=== PATIENT | female | born 1990 ===

== ENCOUNTER 2022-06-01 15:56 | Outpatient (CLI) | payer BC | END 2022-06-01 15:57 | disposition home or self-care (01) | LOC: SCSRAD 15:56 | PROVIDERS: ATTEND Internal Medicine Rheumatology | DX: M25.541 Pain in joints of right hand (principal); M25.542 Pain in joints of left hand ==

== ENCOUNTER 2022-07-04 14:50 | Outpatient (CLI) | payer BC ==
[2022-07-04 16:29] LABS: #Basophils 0.1 thou/uL (0.0-0.2); #Eosinphils 0.1 thou/uL (0.0-0.7); #Lymphocytes 2.3 thou/uL (1.20-3.40); #Monocytes 0.4 thou/uL (0.11-0.59); #Neutrophils 2.3 thou/uL (1.40-6.50); %Basophils 1.2 % (0.0-1.0); %Eosinophils 2.7 % (0.0-10.0); %Lymphocytes 44.7 % (21.0-51.0); %Monocytes 7.2 % (0.0-10.0); %Neutrophils 44.2 % (42.0-75.0); Hemoglobin 13.7 g/dL (12.0-16.0); Mean Corpuscular HGB CONC 33.9 g/dL (32.0-36.0); Mean Corpuscular Hemoglobin 32.2 pg (27.0-31.0); Platelet Count 206 10x3/uL (130-400); RBC Distribution Width 11.8 % (11.5-14.5); Red Blood Cell (RBC) Count 4.25 mill/uL (4.20-5.40); White Blood Cell (WBC) Count 5.1 10x3/uL (4.8-10.8)
[2022-07-04 16:36] LABS: Reticulocyte Count 0.6 % (0.5-1.5)
[2022-07-04 17:07] LABS: ALT (SGPT) 22 U/L (8-55); AST (SGOT) 28 U/L (5-34); Albumin 4.5 g/dL (3.5-5.0); Alkaline Phosphatase 63 U/L (40-110); Anion Gap 12 mmol/L (10-20); BUN (Urea Nitrogen) 12 mg/dL (7.0-18.7); Bilirubin, Total 0.5 mg/dL (0.2-1.2); CRP (Inflammatory) Less than 0.50 mg/dL (= or < 0.5); Calc. Creatinine Clearance 0 mL/min (70-130); Calcium 9.7 mg/dL (7.8-10.44); Carbon Dioxide 27 mmol/L (22-29); Chloride 104 mmol/L (98-107); Estimated GFR 108; Globulin 2.6 g/dL (2.4-3.5); Glucose 76 mg/dL (70-105); Protein, Total 7.1 g/dL (6.0-8.3); Sodium 139 mmol/L (136-145)
[2022-07-05 14:23] LABS: Reference Lab Name LABCORP
== END 2022-07-04 14:51 | disposition home or self-care (01) ==
LOC: SCSRAD 14:50
PROVIDERS: ATTEND Internal Medicine Rheumatology
DX: R05.9 Cough, unspecified (principal); M06.4 Inflammatory polyarthropathy
CPT/HCPCS: 36415; 71046; 80053; 85025; 85046; 85652; 86140; 86231